=== PATIENT | male | born 1955 | race Two or more races ===

== ENCOUNTER 2024-05-19 15:23 | Inpatient (IN) | payer OTHER ==
[~2024-05-19] VITALS: Ht 167.6 cm; Wt 95.5 kg
[2024-05-19] MEDS: TRAMADOL 50MG TABLET PO NR (16:50)
[2024-05-19] MEDS: SODIUM CHLORIDE 0.9% (SEPSIS BOLUS) IV ONE (16:50)
[2024-05-19 16:54] LABS: BASOPHILS % 0.5 % (0.0-2.0); EOSINOPHILS % 2.2 % (0.0-5.0); HEMATOCRIT. 37.7 % (42.0-52.0); HEMOGLOBIN. 12.2 g/dL (14.0-18.0); LYMPHOCYTES % 11.3 % (20.0-50.0); MEAN CORPUSCULAR HEMOGLOBIN 29.2 pg (28.0-32.0); MEAN CORPUSCULAR HGB CONC 32.3 g/dL (31.0-37.0); MEAN CORPUSCULAR VOLUME 90.6 fL (80.0-94.0); MEAN PLATELET VOLUME 7.5 fl (7.4-10.4); MONOCYTES % 4.5 % (2.0-8.0); NEUTROPHILS % 81.5 % (40.0-76.0); PLATELET 276 x1000/uL (130-400); RED BLOOD CELL COUNT 4.16 mill/uL (4.7-6.1); RED CELL DISTRIBUTION WIDTH 15.3 % (11.6-14.6); WHITE BLOOD COUNT 8.1 x1000/uL (4.5-11.0)
[2024-05-19 17:02] LABS: CHLORIDE 102 mEq/L (98-107); POTASSIUM 3.7 mEq/L (3.5-5.1); SODIUM 138 mEq/L (136-145)
[2024-05-19] MEDS: PIPERACILLIN/TAZO 3.375G/50ML 50 ML IV ONE (17:02)
[2024-05-19] MEDS: PIPERACILLIN/TAZO 3.375G/100ML 100 ML IV NR (17:02)
[2024-05-19 17:03] LABS: CARBON DIOXIDE 31 mEq/L (21-32)
[2024-05-19 17:04] LABS: CALCIUM 9.4 mg/dL (8.7-10.4)
[2024-05-19 17:08] LABS: GLUCOSE 127 mg/dL (70-105); UREA NITROGEN BLOOD 13 mg/dL (9-23)
[2024-05-19 17:10] LABS: ALANINE AMINOTRANSFERASE 16 IU/L (10-49); ALBUMIN 3.6 g/dL (3.2-4.8); ASPARTATE AMINOTRANSFERASE 15 IU/L (<34)
[2024-05-19 17:11] LABS: BILIRUBIN TOTAL 0.2 mg/dL (0.1-1.0); PROTEIN TOTAL 8.8 g/dL (6.0-8.3)
[2024-05-19 17:22] LABS: PROTHROMBIN TIME 11.1 sec (9.6-11.0)
[2024-05-19 17:25] LABS: BILIRUBIN DIRECT < 0.1 mg/dL (<=3.0)
[2024-05-19 18:06] LABS: CLARITY URINE CLEAR (CLEAR); COLOR URINE YELLOW (YELLOW); GLUCOSE URINE NEGATIVE (NEGATIVE); KETONES URINE NEGATIVE (NEGATIVE); LEUKOCYTE ESTERASE URINE NEGATIVE (NEGATIVE); NITRITE URINE NEGATIVE (NEGATIVE); OCCULT BLOOD URINE NEGATIVE (NEGATIVE); PROTEIN URINE 1+ (NEGATIVE); SPECIFIC GRAVITY URINE 1.017 (1.005-1.030); UROBILINOGEN URINE 0.2 E.U./dL (0.2-1.0)
[2024-05-19] MEDS: VANCOMYCIN 1G PREMIX 200 ML IV ONE (18:25)
[2024-05-19 18:42] LABS: BACTERIA URINE NONE SEEN; RBC URINE NONE SEEN /hpf (0-2); SQUAMOUS EPITHELIAL CELL URINE NONE SEEN /lpf (RARE/1+); WBC URINE NONE SEEN /hpf (0-2)
[2024-05-19 22:54] VITALS: BP 151/65; PULSE 93; RESP 18; TEMP 37.1408
[2024-05-20] VITALS: BP 151/65; PULSE 99; RESP 18; TEMP 37.11408; O2SAT 99
[2024-05-20 04:00] VITALS: BP 150/67; PULSE 64; RESP 18; TEMP 36.78072; O2SAT 98
[2024-05-20] MEDS ORDERED: DEXTROSE 50% WATER 50ML SYRINGE IV PRN (06:30)
[2024-05-20] MEDS ORDERED: BLOOD SUGAR DIAGNOSTIC STRIP TEST SCH (07:10)
[2024-05-20 08:00] VITALS: BP 141/75; PULSE 72; RESP 20; TEMP 36.55848; O2SAT 99
[2024-05-20] MEDS ORDERED: NALOXONE HCL 0.4MG/ML VIAL IV PRN (08:00)
[2024-05-20] MEDS: BLOOD SUGAR DIAGNOSTIC STRIP TEST SCH (09:15)
[2024-05-20 09:19] LABS: HEPATITIS B SURFACE ANTIGEN NEGATIVE (Negative)
[2024-05-20] MEDS: INSULIN LISPRO 100 UNITS/ML SUBCUT SCH (09:39)
[2024-05-20 09:41] LABS: HEPATITIS C AB NON REACTIVE (Neg) (Negative)
[2024-05-20] MEDS: LIDOCAINE HCL 1% 10 MG/ML 10ML VIAL ONE (09:54)
[2024-05-20 12:00] VITALS: BP 147/61; PULSE 72; RESP 20; TEMP 36.50292; O2SAT 99
[2024-05-20] MEDS: LOSARTAN 50 MG TABLET PO SCH (12:08)
[2024-05-20] MEDS: VANCOMYCIN 1.5GM PMX (XELLIA) 250 ML IV NR (12:58)
[2024-05-20] MEDS: ENOXAPARIN 30MG/0.3ML SYR SUBCUT SCH (12:58)
[2024-05-20] MEDS ORDERED: INFLUENZA VACCINE 05/PF 0.5 ML SYRINGE IM ONE (15:00)
[2024-05-20 16:00] VITALS: BP 165/44; PULSE 70; RESP 20; TEMP 36.50292; O2SAT 100
[2024-05-20] MEDS: PIPERACILLIN/TAZO 3.375G/50ML 50 ML IV SCH (16:31)
[2024-05-20] MEDS ORDERED: LIDOCAINE HCL 4% (40MG/ML) SOLN 50ML TOP NR (17:00)
[2024-05-20 20:00] VITALS: BP 108/69; PULSE 80; RESP 20; TEMP 36.114; O2SAT 98
[2024-05-20] MEDS: VANCOMYCIN 1.25GM PMX (XELLIA) 250 ML IV SCH (22:41)
[2024-05-21] VITALS: BP 120/56; PULSE 85; RESP 20; TEMP 36.55848
[2024-05-21] MEDS: HYDROCODONE/ACETAMINOPHEN 5/325MG TABLET PO PRN (01:04)
[2024-05-21] MEDS: PIPERACILLIN/TAZO 3.375G/100ML 100 ML IV SCH (01:04)
[2024-05-21 04:00] VITALS: BP 118/48; PULSE 78; RESP 18; TEMP 36.6696; O2SAT 96
[2024-05-21 08:00] VITALS: BP 124/54; PULSE 87; RESP 20; TEMP 36.114; O2SAT 100
[2024-05-21] MEDS: MORPHINE SULFATE 2 MG/ML INJ (NOT FOR IM USE) IV NR (10:12)
[2024-05-21] MEDS: SODIUM HYPOCHLORITE 0.125% 473ML SOLUTION TOP SCH (11:00)
[2024-05-21 12:00] VITALS: BP 150/71; PULSE 75; RESP 22; TEMP 36.114; O2SAT 99
[2024-05-21 16:00] VITALS: BP 151/68; PULSE 80; RESP 22; TEMP 36.33624; O2SAT 99
[2024-05-21 20:00] VITALS: BP 166/57; PULSE 87; RESP 22; TEMP 36.55848; O2SAT 98
[2024-05-22] VITALS (7 sets, daily range): BP systolic 148–175; BP diastolic 55–67; PULSE 74–97; RESP 18–20; TEMP 36.61404–37.00296; O2SAT 96–100
[2024-05-22 06:11] LABS: CARBON DIOXIDE 33 mEq/L (21-32); CHLORIDE 102 mEq/L (98-107); POTASSIUM 4.2 mEq/L (3.5-5.1); SODIUM 137 mEq/L (136-145)
[2024-05-22 06:12] LABS: CALCIUM 8.9 mg/dL (8.7-10.4)
[2024-05-22 06:16] LABS: GLUCOSE 101 mg/dL (70-105); UREA NITROGEN BLOOD 11 mg/dL (9-23)
[2024-05-22] MEDS: MORPHINE SULFATE 2 MG/ML INJ (NOT FOR IM USE) IV NR (09:37)
[2024-05-22] MEDS: BACLOFEN 10MG TABLET PO SCH (14:06)
[2024-05-23] VITALS: BP 153/65; PULSE 77; RESP 20; TEMP 36.89184; O2SAT 99
[2024-05-23 04:00] VITALS: BP 154/52; PULSE 66; RESP 22; TEMP 36.55848; O2SAT 98
[2024-05-23 08:00] VITALS: BP 150/57; PULSE 82; RESP 22; TEMP 36.6696; O2SAT 97
[2024-05-23 12:00] VITALS: BP 155/66; PULSE 59; RESP 22; TEMP 37.11408; O2SAT 98
[2024-05-23 16:00] VITALS: BP 152/71; PULSE 81; RESP 18; TEMP 36.78072; O2SAT 98
[2024-05-23 20:00] VITALS: BP 147/75; PULSE 86; RESP 20; TEMP 36.6696; O2SAT 98
[2024-05-24] VITALS (7 sets, daily range): BP systolic 110–159; BP diastolic 56–77; PULSE 72–86; RESP 15–19; TEMP 36.22512–36.72516; O2SAT 93–98
[2024-05-24] MEDS ORDERED: IOHEXOL-350 100 ML BOTTLE ONE (10:44)
[2024-05-24] MEDS ORDERED: SULF1TAB48 MT (13:23)
[2024-05-24] MEDS ORDERED: DAPTOMYCIN 500 MG in SODIUM CHLORIDE 0.9% 50 ML IV NR (14:49)
[2024-05-24] MEDS ORDERED: DAPTOMYCIN 500 MG in SODIUM CHLORIDE 0.9% 50 ML IV SCH (17:00)
[2024-05-25 04:00] VITALS: BP 115/66; PULSE 88; RESP 18; TEMP 36.33624; O2SAT 99
[2024-05-25 08:00] VITALS: BP 133/68; PULSE 87; RESP 20; TEMP 36.114; O2SAT 100
[2024-05-25 12:00] VITALS: BP 119/63; PULSE 77; RESP 20; TEMP 36.05844; O2SAT 100
[2024-05-25 16:00] VITALS: BP 137/79; PULSE 90; RESP 20; TEMP 36.114; O2SAT 100
[2024-05-25] MEDS: DAPTOMYCIN 500 MG in SODIUM CHLORIDE 0.9% 50 ML IV SCH (16:00)
[2024-05-25 16:19] LABS: BG BASE EXCESS 7.1 mmol/L (-2.0-3.0); BG CARBOXYHEMOGLOBIN 1.3 % (0.5-1.5); BG DEOXYHEMOGLOBIN 9.5 % (0.0-5.0); BG FRACTION INSPIRED OXYGEN 21; BG METHEMOGLOBIN 0.3 % (0.5-1.5); BG OXYGEN SATURATION 90.3 % (94.0-98.0); BG OXYHEMOGLOBIN 88.9 % (94.0-98.0); BG PCO2 59.8 mmHg (35.0-48.0); BG PH 7.373 (7.350-7.450); BG PO2 58.5 mmHg (83.0-108.0); BG SAMPLE SITE RIGHT RADIAL; BG TOTAL HEMOGLOBIN 12.4 g/dL (13.5-17.5); BG VENT MODE ROOM AIR
[2024-05-25] MEDS ORDERED: HYDROCODONE/ACETAMINOPHEN 5/325MG TABLET PO PRN (17:00)
[2024-05-25] MEDS ORDERED: NALOXONE HCL 0.4MG/ML VIAL IV PRN (17:00)
[2024-05-25 20:00] VITALS: BP 147/71; PULSE 91; RESP 18; TEMP 36.22512; O2SAT 100
[2024-05-26 04:00] VITALS: BP 149/72; PULSE 82; RESP 18; TEMP 36.33624
[2024-05-26 08:00] VITALS: BP 129/48; PULSE 82; RESP 20; TEMP 36.44736; O2SAT 100
[2024-05-26 12:00] VITALS: BP 104/59; PULSE 97; RESP 20; TEMP 36.33624; O2SAT 97
[2024-05-26 16:00] VITALS: BP 149/73; PULSE 78; RESP 20; TEMP 36.33624; O2SAT 96
[2024-05-26 20:00] VITALS: BP 99/57; PULSE 98; RESP 18; TEMP 36.22512; O2SAT 96
== END 2024-05-27 00:35 | disposition home health service (06) | DRG 380 ==
LOC: ER 15:23 → 8WST 22:22 → 6WST 05-24 18:16
PROVIDERS: ADMIT Internal Medicine; ATTEND Internal Medicine
PROC: 02HV33Z Insertion of Infusion Device into Superior Vena Cava, Percutaneous Approach (ICD-10-PCS; 2024-05-20)
PROC: B548ZZA Ultrasonography of Superior Vena Cava, Guidance (ICD-10-PCS; 2024-05-20)
PROC: 0JBQ0ZZ Excision of Right Foot Subcutaneous Tissue and Fascia, Open Approach (ICD-10-PCS; principal; 2024-05-21)
PROC: 0JBQ0ZZ Excision of Right Foot Subcutaneous Tissue and Fascia, Open Approach (ICD-10-PCS; 2024-05-21)
PROC: 0JBQ0ZZ Excision of Right Foot Subcutaneous Tissue and Fascia, Open Approach (ICD-10-PCS; 2024-05-21)
DX: E11.621 Type 2 diabetes mellitus with foot ulcer (principal); L97.919 Non-pressure chronic ulcer of unspecified part of right lower leg with unspecified severity; E11.52 Type 2 diabetes mellitus with diabetic peripheral angiopathy with gangrene; L03.115 Cellulitis of right lower limb; Z89.612 Acquired absence of left leg above knee; E66.9 Obesity, unspecified; I10 Essential (primary) hypertension; J44.9 Chronic obstructive pulmonary disease, unspecified; R26.9 Unspecified abnormalities of gait and mobility; M62.830 Muscle spasm of back; Z89.512 Acquired absence of left leg below knee; Z68.34 Body mass index [BMI] 34.0-34.9, adult
CPT/HCPCS: 36415; 36573; 36600; 71045; 73630; 73700; 75635; 76881; 80048; 80076; 80202; 81003; 82375; 82805; 82962; 83036; 83605; 84145; 85025; 85651; 86705; 86850; 86900; 87070; 87340; 93005; 93923; 93970; 97162; 97166; 97530; 97535; 99291; A4606; A4663; C1725; J0878; J1650; J1815; J2003; J2270; J2543; J3370; J7030; Q9967

== ENCOUNTER 2024-08-11 18:30 | Emergency (ER) | payer OTHER ==
[~2024-08-11] VITALS: Ht 175.3 cm; Wt 78.0 kg
[2024-08-11 18:32] VITALS: O2SAT 99
[2024-08-11 19:34] LABS: BASOPHILS % 0.7 % (0.0-2.0); EOSINOPHILS % 3.8 % (0.0-5.0); HEMATOCRIT. 45.5 % (42.0-52.0); HEMOGLOBIN. 14.4 g/dL (14.0-18.0); LYMPHOCYTES % 19.2 % (20.0-50.0); MEAN CORPUSCULAR HEMOGLOBIN 28.7 pg (28.0-32.0); MEAN CORPUSCULAR HGB CONC 31.6 g/dL (31.0-37.0); MEAN CORPUSCULAR VOLUME 90.9 fL (80.0-94.0); MEAN PLATELET VOLUME 8.1 fl (7.4-10.4); NEUTROPHILS % 70.3 % (40.0-76.0); PLATELET 299 x1000/uL (130-400); RED BLOOD CELL COUNT 5.01 mill/uL (4.7-6.1); RED CELL DISTRIBUTION WIDTH 17.6 % (11.6-14.6)
[2024-08-11] MEDS: SODIUM CHLORIDE 0.9% (SEPSIS BOLUS) IV ONE (19:35)
[2024-08-11 19:40] LABS: BG CARBOXYHEMOGLOBIN 0.7 % (0.5-1.5); BG DEOXYHEMOGLOBIN 7.8 % (0.0-5.0); BG FRACTION INSPIRED OXYGEN 21; BG METHEMOGLOBIN 0.3 % (0.5-1.5); BG OXYGEN SATURATION 92.1 % (94.0-98.0); BG OXYHEMOGLOBIN 91.2 % (94.0-98.0); BG PCO2 49.7 mmHg (35.0-48.0); BG PH 7.384 (7.350-7.450); BG SAMPLE SITE RIGHT RADIAL; BG TOTAL HEMOGLOBIN 13.9 g/dL (13.5-17.5)
[2024-08-11] MEDS: PIPERACILLIN/TAZO 3.375G/50ML 50 ML IV ONE (19:45)
[2024-08-11 19:56] LABS: LACTIC ACID 2.5 mmol/L (0.4-2.0)
[2024-08-11] MEDS: VANCOMYCIN 1G PREMIX 200 ML IV ONE (20:07)
[2024-08-11 21:40] LABS: CHLORIDE 103 mEq/L (98-107); POTASSIUM 4.1 mEq/L (3.5-5.1); SODIUM 142 mEq/L (136-145)
[2024-08-11 21:41] LABS: CALCIUM 9.7 mg/dL (8.7-10.4); CARBON DIOXIDE 32 mEq/L (21-32)
[2024-08-11 21:43] LABS: PROTHROMBIN TIME 10.9 sec (9.6-11.0)
[2024-08-11 21:46] LABS: CREATININE 0.9 mg/dL (0.6-1.3); GLUCOSE 101 mg/dL (70-105); UREA NITROGEN BLOOD 12 mg/dL (9-23)
[2024-08-11 21:47] LABS: ETHANOL BLOOD < 10 mg/dL (<10)
[2024-08-11 21:48] LABS: ALANINE AMINOTRANSFERASE 10 IU/L (10-49); ALBUMIN 3.6 g/dL (3.2-4.8); ASPARTATE AMINOTRANSFERASE 13 IU/L (<34); BILIRUBIN DIRECT 0.1 mg/dL (<=3.0); BILIRUBIN TOTAL 0.3 mg/dL (0.1-1.0); PROTEIN TOTAL 8.5 g/dL (6.0-8.3)
[2024-08-11 21:53] LABS: TROPONIN I HIGH SENSITIVITY < 4 ng/L (3.0-53)
[2024-08-12 00:04] VITALS: BP 165/74; PULSE 95; RESP 18; TEMP 36.6; O2SAT 97
[2024-08-12 01:14] LABS: CLARITY URINE CLEAR (CLEAR); COLOR URINE YELLOW (YELLOW); GLUCOSE URINE NEGATIVE (NEGATIVE); KETONES URINE TRACE (NEGATIVE); LEUKOCYTE ESTERASE URINE NEGATIVE (NEGATIVE); NITRITE URINE NEGATIVE (NEGATIVE); OCCULT BLOOD URINE NEGATIVE (NEGATIVE); PROTEIN URINE 1+ (NEGATIVE); SPECIFIC GRAVITY URINE 1.023 (1.005-1.030)
[2024-08-12 05:05] LABS: BACTERIA URINE NONE SEEN; RBC URINE 0-2 /hpf (0-2); SQUAMOUS EPITHELIAL CELL URINE NONE SEEN /lpf (RARE/1+); WBC URINE 0-2 /hpf (0-2)
== END 2024-08-12 00:44 | disposition short-term general hospital (02) ==
LOC: ER 18:30 → CANBEDREQ 08-12 00:38 → ER 08-12 00:44
DX: E11.51 Type 2 diabetes mellitus with diabetic peripheral angiopathy without gangrene (principal); J44.9 Chronic obstructive pulmonary disease, unspecified; I10 Essential (primary) hypertension; Z20.822 Contact with and (suspected) exposure to COVID-19; Z89.512 Acquired absence of left leg below knee
CPT/HCPCS: 80076; 80048; 80320; 83605; 83690; 85025; 85610; 86850; 86900; 86901; 84484; 36415; 84145; 71045; 73620; 82805; 82375; 93005; 96365; 96375; 99291; 87426; 36600; 81003; 87086; J2543; J3370; J7030; Z7610; G0480